=== PATIENT | female | born 1975 ===

== ENCOUNTER 2019-08-28 23:34 | Emergency (ER) | payer MEDICAID ==
[~2019-08-28] VITALS: Ht 165.1 cm; Wt 70.0 kg
[2019-08-28 23:40] VITALS: BP 112/71
--- NOTE | 2019-08-28 23:56 | NUR ---
PT TOOK OFF ALL OF HER CLOTHES AND THREW THEM ON THE FLOOR. PT REFUSES TO PUT GOWN ON. ASKED THE PT TO PLEASE PUT GOWN OFF. PT STATES "YOU CAN F OFF". SITTER OUTSIDE ROOM.
--- NOTE | 2019-08-28 23:59 | NUR ---
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
[2019-08-29 00:02] LABS: BASOPHILS # (AUTO) 0.03 x10^3/uL (0-0.1); BASOPHILS % (AUTO) 1 % (0-1); EOSINOPHILS % (AUTO) 2 % (1-7); LYMPHOCYTES # (AUTO) 1.55 x10^3/uL (1-3.4); LYMPHOCYTES % (AUTO) 25 % (22-44); MD NO; MEAN CORPUSCULAR HEMOGLOBIN 31.2 pg (27.0-34.8); MEAN CORPUSCULAR VOLUME 91.7 fL (80-100); MEAN PLATELET VOLUME 8.3 fL (7.4-10.4); MONOCYTES # (AUTO) 0.44 x10^3/uL (0.2-0.8); MONOCYTES % (AUTO) 7 % (2-9); NEUTROPHILS # (AUTO) 4.16 x10^3/uL (1.8-6.8); NEUTROPHILS % (AUTO) 66 % (42-75); PLATELET COUNT 223 x10^3/uL (130-400); RED BLOOD COUNT 3.94 x10^6/uL (3.82-5.3); RED CELL DISTRIBUTION WIDTH 14.3 % (9.6-15.2)
[2019-08-29 00:13] LABS: ALBUMIN 3.7 g/dL (3.4-5.0); ANION GAP 7 mmol/L (5-15); CALCIUM 7.9 mg/dL (8.5-10.1); CHLORIDE 108 mmol/L (98-107); CREATININE 0.93 mg/dL (0.55-1.02)
--- NOTE | 2019-08-29 00:26 | NUR ---
THIS TECH TRANSPORTED PATEINT FROM ER19 TO ER2. PATIENT WOULD NOT KEEP COVERED UP WITH SHEET. I TRIED MLTIPLE TIMES TO COVER HER UP, PATIENT STATED "YOU CAN SHUT YOU'RE EYES IF YOU DONT WANT TO SEE PERFECTION.
--- NOTE | 2019-08-29 00:45 | NUR ---
REPORT FROM JOSEFINA SAUNDERS. PT TRANSFERRED, SITTER CONTINUES AT BEDSIDE.
--- NOTE | 2019-08-29 00:45 | NUR ---
REPORT EPHRAIM ROCHA
--- NOTE | 2019-08-29 00:58 | NUR ---
PATIENT AMBULATED TO BATHROOM WITHOUT ANY ASSISTANCE FROM THIS TECH. I ATTEMPTED TO HOLD A SHEET UP IN FRONT/BEHIND HER WITH LITTLE SUCCESS. PATIENT STILL REFUSED TO KEEP ANY CLOTHING ON.
--- NOTE | 2019-08-29 01:37 | NUR ---
PT SLEEPING IN BED, NAD NOTED. RESPIRATIONS EVEN AND UNLABORED. CALL LIGHT IN REACH.
--- NOTE | 2019-08-29 01:52 | NUR ---
Report received from JOSEFINA Quijano. This RN to assume care.
--- NOTE | 2019-08-29 04:40 | NUR ---
Patient yelling profanities out loud and at staff. Continuously refusing vitals.
--- NOTE | 2019-08-29 05:29 | NUR ---
Patient ambulatory with a steady gait. Continuing to use profanities and refuse vitals. Attempted to give discharge instructions; patient refused. Belongings with patient.
== END 2019-08-29 05:31 | disposition home or self-care (01) ==
LOC: ED 08-29 05:10
DX: F10.120 Alcohol abuse with intoxication, uncomplicated (principal); R41.82 Altered mental status, unspecified; Y90.0 Blood alcohol level of less than 20 mg/100 ml
CPT/HCPCS: 36415; 80048; 80307; 82040; 85025; 99283